=== PATIENT | male | born 1950 | race Caucasian/White ===

== ENCOUNTER → 2022-01-24 | Outpatient (CLI) | payer MEDICAID, OTHER | LOC: LAB 08:00 | PROVIDERS: ATTEND Family Medicine | DX: U07.1 COVID-19 (principal) ==

== ENCOUNTER 2022-01-30 18:06 | Outpatient (CLI) | payer MEDICARE, OTHER ==
--- NOTE | 2022-01-31 09:32 | XRAY Report ---
PROCEDURE: Chest 2 View X-Ray INDICATIONS: COVID-19 INFECTION TECHNIQUE: 2 view(s) of the chest. COMPARISON: None. FINDINGS: Surgical changes and devices: None. Lungs and pleura: No pleural effusions or pneumothorax. Lungs are clear. Mediastinum: Mediastinal contours are normal. Heart size is normal. Bones and chest wall: No suspicious bony abnormalities. Soft tissues appear unremarkable. IMPRESSION: No acute cardiopulmonary process demonstrated radiographically. Reviewed by: Lauro Ramirez MD on 01/31/2022 9:31 AM PDT Approved by: Lauro Ramirez MD on 01/31/2022 9:31 AM PDT Station ID: [id number]
== END 2022-01-30 23:59 | disposition home or self-care (01) ==
LOC: DI.N 18:06
PROVIDERS: ATTEND Family Medicine
DX: U07.1 COVID-19 (principal)